=== PATIENT | male | born 1945 | race Caucasian/White ===

== ENCOUNTER 2021-01-11 07:00 | Day surgery (SDC) | payer MEDICARE ==
[~2021-01-11] VITALS: Ht 180.3 cm; Wt 87.7 kg
[~2021-01-11 07:00] MED LIST: ADULT LOW DOSE81 MG PO; CYCLOBENZAPRINE10 MG PO; FIBER350 GM PO; FLOMAX0.4 MG PO; FLUVOXAMINE MA100 MG PO; LISINOPRIL20 MG PO; MELOXICAM15 MG PO; NEURONTIN300 MG PO; OMEPRAZOLE20 MG PO; PRAVASTATIN SOD40 MG PO; PRESERVISION A1 EACH PO; SLEEP AID25 M1 PO
--- NOTE | 2021-01-11 09:27 | NUR ---
01/11/21 0927 Ada Fuentes 0914 PT TO PACU ASLEEP BUT AROUSABLE DENIES PAIN
--- NOTE | 2021-01-12 07:53 | OR ---
[facility] [address], [place] [address] Signed DATE OF OPERATION: 01/11/2021 SURGEON: Janis Novak MD PREOPERATIVE DIAGNOSES: 1. Hyperplastic colonic polyps in 2010 at age 65. 2. Diverticulosis. 3. Brother with colon cancer, age 68. 4. Chronic constipation. POSTOPERATIVE DIAGNOSIS: Moderate to severe sigmoid diverticulosis with angulation. PROCEDURES: Colonoscopy without biopsy. ESTIMATED BLOOD LOSS: None. INDICATIONS: Ayleen is a 75-year-old gentleman asked to see me for followup colonoscopy. He had a negative colonoscopy many years ago in [place], [place]. I performed his colonoscopy in 2010 at the age of 65. He had one small hyperplastic polyp along with diverticulosis. He had done well with Versed and fentanyl at that time. His brother was diagnosed with colon cancer at age 68. As a result, Ayleen comes every five years. However, his primary care provider had retired. He now is re-established with a new primary care provider. He said he has no lower GI complaints other than chronic constipation. He is very hard of hearing and his comes with him to help in that regard. In the office, I gave them a booklet on colonoscopy. They recall the nature of the test quite well. There is risk including, but not limited to gas bloating, crampy abdominal pain, bleeding, perforation requiring surgery, and missed diagnosis. They are aware of the need for IV conscious sedation. I also made them aware of the need for a followup colonoscopy every five years due to the family history. They had expressed understanding and wished to proceed. PROCEDURE IN DETAIL: Ayleen was taken into our endoscopy suite and placed in the left lateral decubitus position. He was given 5 mg of Versed and 125 mcg of fentanyl to cover the case. A digital rectal exam was performed. He has a fairly significantly enlarged indurated prostate gland. After this, the adult colonoscope was introduced and advanced under Electronically Signed By: JANIS NOVAK MD 01/12/21 0753 PATIENT NAME: AYLEEN LOZA OPERATIVE REPORT DATE OF : 49 REPORT #: [id number] PHYSICIAN: JANIS NOVAK MD PCP: [facility] PAC REPORT IS CONFIDENTIAL AND NOT TO BE RELEASED WITHOUT AUTHORIZATION [facility] [address], [place] [address] Signed direct visualization. It took some extra time in sedation in order to get through the sigmoid colon. He had significant diverticular disease with angulated colon. Then the lumen was not overly narrow. Once we got above the sigmoid colon the scope passed fairly readily up into the right colon. It took just a little extra pressure to get the scope to pass down into the cecum itself. His prep was quite excellent. We could easily see the appendiceal orifice and the ileocecal valve. We took pictures throughout for photodocumentation. The scope was slowly withdrawn. Again, he has moderate diverticula in his sigmoid colon. They were moderate in size, moderate in number, and scattered about. No polyps on this occasion. The rectum was unremarkable. Upon retroflexion of scope, very little in the way of any internal hemorrhoid tissue. After this, the gas was suctioned out colonoscope removed. Ayleen tolerated the procedure quite well. RECOMMENDATIONS: Ayleen can certainly use daily fiber supplement such as Benefiber. He can always add MiraLAX as needed. He will stay on the 5-year rotation for colonoscopy due to the family history. Janis Novak MD ALB/MODL /[id number] cc: Bill Novak MD Copies: JANIS NOVAK MD ~ Electronically Signed By: JANIS NOVAK MD 01/12/21 0753 PATIENT NAME: AYLEEN LOZA OPERATIVE REPORT DATE OF : 49 REPORT #: [id number] PHYSICIAN: JANIS NOVAK MD PCP: BILL MARS PAC REPORT IS CONFIDENTIAL AND NOT TO BE RELEASED WITHOUT AUTHORIZATION
== END 2021-01-11 09:55 | disposition home or self-care (01) ==
LOC: DS 07:00 → OPS 07:00 → DS 08:15 → OPS 08:15
PROVIDERS: ATTEND Colon & Rectal Surgery
PROC: 0DJD8ZZ Inspection of Lower Intestinal Tract, Via Natural or Artificial Opening Endoscopic (ICD-10-PCS; principal; 2021-01-11 08:15)
DX: K59.09 Other constipation (principal); K57.30 Diverticulosis of large intestine without perforation or abscess without bleeding; K56.609 Unspecified intestinal obstruction, unspecified as to partial versus complete obstruction; I12.9 Hypertensive chronic kidney disease with stage 1 through stage 4 chronic kidney disease, or unspecified chronic kidney disease; N18.4 Chronic kidney disease, stage 4 (severe); M19.90 Unspecified osteoarthritis, unspecified site; N40.0 Benign prostatic hyperplasia without lower urinary tract symptoms; J43.9 Emphysema, unspecified; E78.00 Pure hypercholesterolemia, unspecified; F17.210 Nicotine dependence, cigarettes, uncomplicated; Z80.0 Family history of malignant neoplasm of digestive organs; Z79.82 Long term (current) use of aspirin; Z87.19 Personal history of other diseases of the digestive system
CPT/HCPCS: 99153; G0500; J2250; J3010; J7121

== ENCOUNTER 2023-01-28 14:37 | Emergency (ER) | payer MEDICARE ==
[~2023-01-28] VITALS: Ht 180.3 cm; Wt 81.2 kg
[2023-01-28] MEDS ORDERED: HYDROCODON-ACE1 EA10 PO (19:12)
[2023-01-28 19:16] VITALS: BP 133/79
== END 2023-01-28 19:10 | disposition home or self-care (01) ==
LOC: ED 14:37
DX: S61.112A Laceration without foreign body of left thumb with damage to nail, initial encounter (principal); W31.2XXA Contact with powered woodworking and forming machines, initial encounter; Z91.041 Radiographic dye allergy status; Z79.899 Other long term (current) drug therapy; Z79.82 Long term (current) use of aspirin
CPT/HCPCS: 73140; 90715; A9270